=== PATIENT | male | born 1975 | race Caucasian/White ===

== ENCOUNTER 2016-05-15 23:21 | Inpatient (IN) ==
[2016-05-16 00:41] LABS: Basophils % 0.2 %; Eosinophils # 0.1 K/mcL (0.0-0.6); Eosinophils % 1.1 %; Hematocrit 42.6 % (37.5-50.1); Hemoglobin 14.9 g/dL (12.9-16.9); Immature Granulocytes % 0.3 % (0-4); Lymphocytes # 1.7 K/mcL (0.6-4.6); Lymphocytes % 17.8 %; Mean Corpuscular Hemoglobin 30.5 pg (28.0-33.3); Mean Corpuscular Volume 87.3 fL (83.0-100.0); Monocytes # 0.6 K/mcL (0.0-1.3); Platelet Count 232 K/mcL (140-400); Red Blood Count 4.88 M/mcL (4.19-5.50); Red Cell Distribution Width 12.9 % (11.5-14.5); Segmented Neutrophils % 74.6 %
--- NOTE | 2016-05-16 00:50 | Emergency Department Note ---
Disposition Clinical Impression: Unstable angina Chest pain Qualifiers: Chest pain type: unspecified Qualified Code(s): R07.9 - Chest pain, unspecified Disposition: Admitted As Inpatient Condition: Fair Time of Disposition: 02:31 Chest Pain HPI - General Chief Complaint: ED Chest Pain Stated Complaint: chest pain Time Seen by Provider: 05/16/16 00:44 Source: patient, EMS Limitations: no limitations Vital Signs Reviewed: Yes Nursing Notes Reviewed: Yes - History of Present Illness HPI Narrative: 40-year-old male history of 2 stents, CAD, hypertension, hyperlipidemia, presents with chest pain at rest. Patient states that he had 9 out of 10 crampy chest pressure radiating to his left arm making him short of breath and diaphoretic earlier this evening about 10:30 PM 3 hours prior to ED arrival. Patient came in by EMS was given an aspirin 325 mg, patient had subsequent reduction in chest pain however it still 5 out of 10. Patient is having active chest pain, 5 out of 10. He states that he also has the pain worsened tonight, and has had this for the last few months as well. Has been evaluated previously by Dr. Jose, previous stent was in 2009 Pt complaint: chest pain Onset (ago): hour(s) Duration: intermittent Onset: during rest Pain Location: substernal, left chest Severity: moderate Severity scale (1-10): 6 Quality: heaviness Pain Radiation: RUE Worsens with: nothing Treatments prior to arrival chest pain: aspirin (324mg by EMS) - Related Data Home Medications Medication Instructions Recorded Confirmed Amlodipine [Norvasc] 5 mg PO QAM 09/09/15 05/16/16 Aspirin Enteric Coated [Aspirin EC] 81 mg PO QAM 09/09/15 05/16/16 Atorvastatin Calcium [Lipitor] 80 mg PO HS 09/09/15 05/16/16 Clopidogrel [Plavix] 75 mg PO QAM 09/09/15 05/16/16 Lisinopril [Zestril] 40 mg PO QAM 09/09/15 05/16/16 Metoprolol [Lopressor] 100 mg PO BID 09/09/15 05/16/16 Nitroglycerin [Nitrostat] 0.4 mg SL AD PRN 09/09/15 05/16/16 Ranitidine HCl [Heartburn Relief] 150 mg PO BID 09/09/15 05/16/16 PriLOSEC 05/16/16 05/16/16 Allergies Allergy/AdvReac Type Severity Reaction Status Date / Time No Known Allergies Allergy Verified 09/09/15 13:51 All systems ED: reviewed and negative except as stated. Constitutional: Denies: fever, chills Eyes: Denies: eye pain, eye discharge ENT ED: Denies: ear pain, throat pain Cardiovascular: Reports: as per HPI, chest pain, dyspnea on exertion. Denies: palpitations Respiratory: Denies: cough, dyspnea Gastrointestinal: Reports: nausea. Denies: abdominal pain, vomiting Genitourinary: Denies: urgency, dysuria Musculoskeletal: Denies: back pain, neck pain Neurological: Denies: headache, weakness Chest Pain PMH - Past Medical History Medical history: Reports: coronary artery disease, CVA, hyperlipidemia, hypertension, myocardial infarction, peripheral artery disease, TIA Surgical history: Reports: cholecystectomy Psychiatric history: Reports: no psych history - Social History Smoking Status: Current every day smoker Alcohol use: Reports: none Drug use: Reports: none Physical Exam Constitutional: alert and oriented, somewhat uncomfortable, mildly hypertensive Neck: normal inspection, neck is supple, trachea midline Resp: normal chest inspection, CTA bilaterally, no resp distress CV: RRR, no m/g/r GI: normal inspection, Soft, NTND, BS present Back: normal inspection, no tenderness to palpation Neuro: A&O3, no gross motor or sensory deficits bilaterally Skin: No rashes, skin warm, dry, intact - General Limitations: no limitations General appearance: alert Course Course Narrative: 40-year-old male with a heart score of 5, given moderate to severely suspicious story risk factors and history of CAD even though he is young, he is at high risk for having acute or unstable angina. His first EKG review does show some subtle ST depressions in leads V5 and V6 repeat an EKG of the patient sells active chest pain try nitroglycerin, his initial EKG was done and the patient arrived about an hour prior to evaluation and has been placed. No ST segment elevations. - Reevaluation(s) Reevaluation #1: After reviewing to repeat EKGs, he had a mild ST elevation in lead aVR, not consistent with STEMI criteria, ST depressions in V5 and V6, that appear to be new, given EKG changes I did discuss the case with Dr. Farnsworth recommended that we start anticoagulation, consult cardiology, admitted to medicine service, for unstable angina, no evidence of an STEMI or STEMI at the time of admission, patient is stable, his chest pain improved to a 2 out of 10, will try morphine as well for chest painper Hospitalist Mynor king, if unable to get chest pain under control will start nitroglycerin drip Time: 02:29 Vital Signs Temperature 97.3 F L 05/15/16 23:22 Pulse Rate 105 05/15/16 23:22 Respiratory Rate 18 05/15/16 23:22 Blood Pressure 158/92 05/15/16 23:22 O2 Sat by Pulse Oximetry 100 05/15/16 23:22 Temperature 97.3 F L 05/15/16 23:22 Pulse Rate 89 05/16/16 04:37 Respiratory Rate 16 05/16/16 04:37 Blood Pressure 102/54 05/16/16 04:37 O2 Sat by Pulse Oximetry 97 05/16/16 04:37 Oxygen Delivery Oxygen Delivery Room Air Chest Pain - Differential Diagnosis Likely: unstable angina pectoris, atypical chest pain, st elevation myocardial infraction, costalchondritis - Medical Records Medical records reviewed: Yes I reviewed the patient's medical records. - Lab Data Result diagrams: 05/16/16 00:32 05/16/16 00:32 Lab Results 05/16/16 05/16/16 05/16/16 Range/Units 00:32 00:32 00:32 WBC 9.4 (4.3-11.1) K/mcL RBC 4.88 (4.19-5.50) M/mcL Hgb 14.9 (12.9-16.9) g/dL Hct 42.6 (37.5-50.1) % MCV 87.3 (83.0-100.0) fL MCH 30.5 (28.0-33.3) pg MCHC 35.0 (31.6-35.5) g/dL RDW 12.9 (11.5-14.5) % Plt Count 232 (140-400) K/mcL MPV 9.0 L (9.4-12.4) fL Immature Gran % 0.3 (0-4) % Seg Neutrophils % 74.6 % Lymphocytes % 17.8 % Monocytes % 6.0 % Eosinophils % 1.1 % Basophils % 0.2 % Neutrophils # 7.0 (1.6-8.9) K/mcL Lymphocytes # 1.7 (0.6-4.6) K/mcL Monocytes # 0.6 (0.0-1.3) K/mcL Eosinophils # 0.1 (0.0-0.6) K/mcL Basophils # 0.0 (0.0-0.2) K/mcL PT (9.4-12.1) Seconds INR APTT (26.0-36.0) Seconds Sodium 139 (136-145) mEq/L Potassium 3.3 L (3.5-4.5) mEq/L Chloride 104 (98-109) mEq/L Carbon Dioxide 24 (19-29) mEq/L BUN 25 (8-26) mg/dL Creatinine 1.48 H (0.72-1.25) mg/dL Est GFR ( Amer) > 60 (> 60) Est GFR (Non-Af Amer) 52 L (> 60) BUN/Creatinine Ratio 17 (6-26) Glucose 195 H (70-99) mg/dL Calculated Osmolality 298 (280-300) Calcium 9.4 (8.6-10.8) mg/dL Troponin I 0.03 (0-0.03) ng/mL 05/16/16 Range/Units 01:30 WBC (4.3-11.1) K/mcL RBC (4.19-5.50) M/mcL Hgb (12.9-16.9) g/dL Hct (37.5-50.1) % MCV (83.0-100.0) fL MCH (28.0-33.3) pg MCHC (31.6-35.5) g/dL RDW (11.5-14.5) % Plt Count (140-400) K/mcL MPV (9.4-12.4) fL Immature Gran % (0-4) % Seg Neutrophils % % Lymphocytes % % Monocytes % % Eosinophils % % Basophils % % Neutrophils # (1.6-8.9) K/mcL Lymphocytes # (0.6-4.6) K/mcL Monocytes # (0.0-1.3) K/mcL Eosinophils # (0.0-0.6) K/mcL Basophils # (0.0-0.2) K/mcL PT 11.2 (9.4-12.1) Seconds INR 1.0 APTT 29.3 (26.0-36.0) Seconds Sodium (136-145) mEq/L Potassium (3.5-4.5) mEq/L Chloride (98-109) mEq/L Carbon Dioxide (19-29) mEq/L BUN (8-26) mg/dL Creatinine (0.72-1.25) mg/dL Est GFR ( Amer) (> 60) Est GFR (Non-Af Amer) (> 60) BUN/Creatinine Ratio (6-26) Glucose (70-99) mg/dL Calculated Osmolality (280-300) Calcium (8.6-10.8) mg/dL Troponin I (0-0.03) ng/mL - Radiology Data Radiology results reviewed: Yes I reviewed the patient's radiology results. Chest X-Ray 05/16/16 00:35 IMPRESSION: Negative portable chest. D/ / Jesús Wilkinson MD / Jesús Wilkinson MD Interpreting Provider: Jesús Wilkinson MD - EKG Data EKG attestation: Yes I reviewed and interpreted this EKG. EKG shows normal: sinus rhythm Rate: normal ( ST segment depressions in V5 V6), tachycardia ST segment depression in: v5, v6 When compared to previous EKG there are: other (Repeat EKG at [address] elevation in aVR 2 mm, does not meet STEMI criteria, ST depressions in V5 V6 and lead II) Interpretation: nonspecific ST-T wave changes, other (Second repeat EKG at 0056 right-sided shows no evidence of ST segment elevations or depressions) - Core Measures AMI Core Measures Followed: Yes Heart Score - Score History: Highly Suspicious EKG: Significant ST-Depression Age: Less than 45 Risk Factors: Equal/Greater than 3 risk factor or history of atherosclerotic disease Troponin: Less than normal limit HEART Score Total: 6 Attestation Statement - Attestation Attestation: I personally interviewed and examined this patient and my medical decision- making was reviewed with the ED Resident Physician, Dr. Cabral. I agree with the documented findings, disposition and treatment plan as described except to the extent set forth below. Patient is a 40-year-old white male with a significant history of known coronary artery disease with prior stent placement who presents tonight with chest pain. Initial EKG concerning for lateral ST depression which is new compared to prior EKGs. Patient was given aspirin and nitroglycerin administration as well as morphine with relief of chest pain and remained hemodynamically stable following medication. Chest x-ray is unremarkable. Serial EKGs over time show no significant change or progression of lateral ischemia. Case was discussed with cardiology who recommended heparin IV and will consult on the patient this morning. Patient will be admitted for further evaluation and treatment remains pain-free and hemodynamically stable.
[2016-05-16] MEDS: Nitroglycerin 0.4 MG TAB.SUBL SL ONE ×3 (00:53→01:16)
[2016-05-16 00:55] LABS: BUN/Creatinine Ratio 17 (6-26); Blood Urea Nitrogen 25 mg/dL (8-26); Calcium 9.4 mg/dL (8.6-10.8); Carbon Dioxide 24 mEq/L (19-29); Chloride 104 mEq/L (98-109); Glucose 195 mg/dL (70-99); Osmolality,Calculated 298 (280-300); Potassium 3.3 mEq/L (3.5-4.5); Sodium 139 mEq/L (136-145); eGFR For African Americans > 60 (> 60); eGFR For Non-African Americans 52 (> 60)
[2016-05-16 01:45] LABS: Prothrombin Time 11.2 Seconds (9.4-12.1)
[2016-05-16 01:47] LABS: Activated Partial Thrombo Time 29.3 Seconds (26.0-36.0)
[2016-05-16] MEDS ORDERED: *HR* Enoxaparin 120 MG/0.8 ML SYRINGE SQ STA (02:04)
[2016-05-16] MEDS ORDERED: Ondansetron 4 MG/2 ML VIAL IV ONE (02:06)
[2016-05-16] MEDS ORDERED: *HR* Morphine 2 MG/ML SYRINGE IV ONE (02:06)
[2016-05-16] MEDS ORDERED: Nitroglycerin 0.4 MG TAB.SUBL SL PRN (06:44)
[2016-05-16] MEDS: Aspirin Enteric Coated 81 MG Tablet PO SCH (08:00)
[2016-05-16] MEDS ORDERED: Naloxone 0.4 MG/ML INJ IVP PRN (08:46)
[2016-05-16] MEDS ORDERED: Acetaminophen 325 MG TABLET PO PRN (08:46)
--- NOTE | 2016-05-16 08:46 | Internal Med History&Physical ---
Date of Encounter: 05/16/16 Time of Encounter: 08:00 Assessment and Plan (1) NSTEMI (non-ST elevated myocardial infarction) Current visit: Yes Status: Acute Pt with h/o CAD and prior coronary stents - with chest pain, abnormal EKG and elevated troponin. Treat with aspirin, continue clopidogrel, statin, enoxaparin. Cardiology consult for possible cardiac cath / intervention. (2) JÚNIOR (acute kidney injury) Current visit: Yes Status: Acute Monitor renal function. (3) HTN (hypertension) Current visit: Yes Status: Chronic Monitor BP. Hold antihypertensives at this time, as the pt has low normal BP. (4) Tobacco abuse Current visit: Yes Status: Chronic Counseled about smoking cessation. Offered nicotine patches (5) Hypokalemia Current visit: Yes Status: Acute Potassium replenishment. Check magnesium levels (6) Hyperglycemia Current visit: Yes Status: Acute Will check A1C (pt is at risk of DM) (7) STERLING (obstructive sleep apnea) Current visit: Yes Status: Chronic Pt apparently not using CPAP. Encouraged, to use treatement Internal Medicine - H&P: HPI Chief complaint: Chest pain Admitted From: Emergency Dept Plans for Post Hospital Care: Home History of present illness: Mr. Sifuentes is a 40 year old male with past medical history significant for coronary artery disease s/p coronary artery stents 2 in 2010, hyperlipidemia, hypertension, STERLING not on treatment, current smoker, family h/o premature CAD ( Father had [place] in his 40s) presented to the ER with h/o chest pain started at about 6 PM last night, after light work. Sharp/stabbing chest pain on the left side of his chest, 9/ 10 in severity, radiation to the left upper extremity. Pain relieved with the nitroglycerin in emergency department. He denies associated nausea, vomiting, locations, shortness of breath, sweating. Denies abdominal pain, dysuria, hematuria, bowel problems, cough, expectoration, fever , chills. He was evaluated in the emergency department and EKG was reviewed by the on-call division leader. Pt was given Aspirin, lovenox and nitroglycerine and admitted to the hospitalist service for further management. Past Med Surg Social Fam HX - Past Medical History Medical history: coronary artery disease, CVA, hyperlipidemia, hypertension, myocardial infarction, peripheral artery disease, TIA Psychiatric history: no psych history - Past Surgical History Surgical History: cholecystectomy - Social History Smoking Status: Current every day smoker Smokeless Tobacco Status: No Alcohol use: none Drug use: none - Family History Mother Hx Family Endocrine Disorder: Yes Father Living Status: Still Living Hx Family Cardiac Disorders: Yes Hx Family Respiratory Disorders: Yes Hx Family Cancer: Yes (lung) Hx Family Endocrine Disorder: Yes Internal Medicine - H&P: Meds Aspirin Enteric Coated [Aspirin EC] 81 mg PO QAM 09/09/15 [History] Atorvastatin Calcium [Lipitor] 80 mg PO HS 09/09/15 [History] Clopidogrel [Plavix] 75 mg PO QAM 09/09/15 [History] Lisinopril [Zestril] 40 mg PO QAM 09/09/15 [History] Metoprolol [Lopressor] 100 mg PO BID 09/09/15 [History] Nitroglycerin [Nitrostat] 0.4 mg SL AD PRN 09/09/15 [History] Ranitidine HCl [Heartburn Relief] 150 mg PO BID 09/09/15 [History] Febuxostat [Uloric] 40 mg PO DAILY 05/16/16 [History] Hydrochlorothiazide 25 mg PO DAILY 05/16/16 [History] NIFEdipine [Nifedipine ER] 30 mg PO DAILY 05/16/16 [History] Omeprazole [PriLOSEC] 20 mg PO DAILY 05/16/16 [History] Allergies No Known Allergies Allergy (Verified 09/09/15 13:51) All Systems PM: A 10-system review of systems was performed and is negative for pertinent findings except as documented above in the HPI. - Constitutional Vitals: Temp Pulse Resp BP Pulse Ox 97.7 F 67 16 109/68 97 05/16/16 08:00 05/16/16 08:00 05/16/16 08:00 05/16/16 08:00 05/16/16 08:00 Exam: General: Obese. Not in acute distress at the time of my evaluation HEENT: Oral mucosa is moist. No conjunctival palor or scleral icterus Neck: Short neck / fat + Lungs: Clear to auscultation Cardiac: Regular rate and rhythm. No significant murmurs Abdomen: Obese, non tender. Bowel sounds present Genitourinary: No lentz catheter Neurological: Alert and oriented. No gross localizing deficits Psych: Not aggressive or agitated Extremities: no significant leg edema Skin: No generalized rash Internal Med - H&P Results - Labs CBC & Chem 7: 05/16/16 08:58 05/16/16 08:58 Labs: Cardiac Enzymes 05/16/16 Range/Units 05:55 Troponin I 8.64 H* (0-0.03) ng/mL - EKG Data -: EKG Interpreted by Myself EKG shows normal: sinus rhythm - EKG Data EKG comments: ST depression in I, II, AVL, V4-V6 05/16/16 09:00 - Impressions ITS Impressions Chest X-Ray 05/16/16 00:35 IMPRESSION: Negative portable chest. D/ / Jesús Wilkinson MD / Jesús Wilkinson MD Interpreting Provider: Jesús Wilkinson MD
[2016-05-16] MEDS ORDERED: Potassium Chloride 40 MEQ, Lidocaine 1% 2 ML in D5% in Water 500 ML IVPB ONE (08:48)
--- NOTE | 2016-05-16 08:59 | Pre-Sedation Evaluation ---
Pre-sedation evaluation - Pre-sedation checklist Date of procedure: 05/16/16 Procedure: [facility] Recent Vitals: Last Vital Signs Temp 97.7 F 05/16/16 08:00 Pulse 67 05/16/16 08:00 Resp 16 05/16/16 08:00 BP 109/68 05/16/16 08:00 Pulse Ox 97 05/16/16 08:00 H&P (including ROS) documented in medical record: Yes Previous reaction to sedatives/anesthetics: No Dietary Status: No solid food in preceding 4 hrs and no liquid in preceding 2 hrs Airway Assessment: Patient can open mouth completely, TMJ function normal ASA Classification *see protocol: CLASS II-Mild systemic disease Plan of Care: Pt appropriate candidate for procedure/moderate/conscious sedation , Risks/benefits of procedure/sedation discussed w/ patient/family
--- NOTE | 2016-05-16 09:02 | Cardiology Consult Note ---
Date of Encounter: 05/16/16 Time of Encounter: 08:30 Assessment and Plan (1) NSTEMI (non-ST elevated myocardial infarction) Current Visit: Yes Status: Acute Per cardiology: -Know hx of CAD with 2 stents in 2009. -Inital trop 003, 8.64, and now 16.02. -Diffuse St changed on ECG new from previous. -On asa, plavix, statin, s/p Lovenox x 1 -BP 100-130s. -Currently chest pain free, however presented to ER with chest pain on exertion. States has been having chest pain with exertion for a couple of weeks. Also admits to increased shortness of breath and increased fatigue. -Will increase lovenox to 1mg/kg BID. -Will start lopressor 12.5mg BID. -Left heart cath. Risk and benefits of LHC given to patient. Patient states understanding and agreeable to proceed. Discussed with and . Will check echo -Further recommendations pending LHC. (MADDIE) (2) HTN (hypertension) Current Visit: Yes Status: Chronic Per cardiololgy: -Known history of hypertension. -At home on beta natasha, calcium channel blcoker, gerard inhibitor and HCTZ. -BPs currently 100-130s systolic, -Will start lopressor 12.5mg BID/ -Watch BP closely. -Will titrate medications as tolerated. (MADDIE) Qualifiers: Hypertension type: essential hypertension Qualified Code(s): I10 - Essential (primary) hypertension (3) JÚNIOR (acute kidney injury) Current Visit: Yes Status: Acute Per cardiology: -Creatinine on admission 1.48. -Baseline 1.1-1.2. -GFR currently 52. -Monitor closely after LHC. -Management per primary service. (MADDIE). (4) Hypokalemia Current Visit: Yes Status: Acute Per cardiololgy: -K 3.3. -K rider ordered. -Will continue to monitor. (MADDIE) (5) Tobacco abuse Current Visit: Yes Status: Chronic Per cardiology: -Known smoker. -Smokes 1 pack per day for 20 years for 20 pack year history. -States no desire to quit smoking. -Smoking cessation education given. I spent greater than 5 minutes discussing smoking cessation with patient. (MADDIE) Discussion w patient/family: The assessment and plan as outlined above was discussed with the patient who expressed understanding and agreement. All questions were answered. Thank you for involving us in the care of your patient. Please call with any questions. Patient seen and examined with FILI López Discussed and reviewed with and . History of Present Illness Consult date: 05/16/16 Requesting physician: Alfred Cabral Consult reason: unstable angina Chief complaint: chest pain History of present illness: Mr. Sifuentes is a 40 year old male with a relevant past medical history for CAD status post stenting in 2009, reported CVA x2, STERLING, hyperlipidemia, HTN, smoking , and obesity. Patient reports smoking 1 pack per day foer 20 years. Patient states he was at home and he walked his dogs outside and had chest pain that radiated down left arm. Patient states it was over his left chest and was stabbing. Patient states over the past couple of months he has been getting this pain with excertion. Patient also reports increased shortness of breath and increased fatigue lately. Patient unsure of what symptoms were when he has stents placed in 2009. Patient denies recent illness. (MADDIE) Past Med Surg Social Fam HX - Past Medical History Attestation: Yes The following information was validated with the patient. Source: patient, old records reviewed, obtained from family Medical history: coronary artery disease, CVA, hyperlipidemia, hypertension, myocardial infarction, peripheral artery disease, TIA Psychiatric history: no psych history - Past Surgical History Surgical History: cholecystectomy - Social History Smoking Status: Current every day smoker Smokeless Tobacco Status: No Alcohol use: none Drug use: none - Family History Mother Hx Family Endocrine Disorder: Yes Father Living Status: Still Living Hx Family Cardiac Disorders: Yes Hx Family Respiratory Disorders: Yes Hx Family Cancer: Yes (lung) Hx Family Endocrine Disorder: Yes Medications and Allergies Aspirin Enteric Coated [Aspirin EC] 81 mg PO QAM 09/09/15 [History] Atorvastatin Calcium [Lipitor] 80 mg PO HS 09/09/15 [History] Clopidogrel [Plavix] 75 mg PO QAM 09/09/15 [History] Lisinopril [Zestril] 40 mg PO QAM 09/09/15 [History] Metoprolol [Lopressor] 100 mg PO BID 09/09/15 [History] Nitroglycerin [Nitrostat] 0.4 mg SL AD PRN 09/09/15 [History] Ranitidine HCl [Heartburn Relief] 150 mg PO BID 09/09/15 [History] Febuxostat [Uloric] 40 mg PO DAILY 05/16/16 [History] Hydrochlorothiazide 25 mg PO DAILY 05/16/16 [History] NIFEdipine [Nifedipine ER] 30 mg PO DAILY 05/16/16 [History] Omeprazole [PriLOSEC] 20 mg PO DAILY 05/16/16 [History] Allergies No Known Allergies Allergy (Verified 09/09/15 13:51) All Systems Review: A 10-system review of systems was performed and is negative for pertinent findings except as documented above in the HPI. - Constitutional Constitutional: fatigue - Cardiovascular Cardiovascular: as per HPI, chest pain with exertion, dyspnea on exertion, radiating jaw, neck or arm pain Physical Examination Vital Signs, Last 4 Hours Temp Pulse Resp BP Pulse Ox 05/16/16 08:00 97.7 F 67 16 109/68 97 05/16/16 07:55 97.7 F 67 16 109/68 97 General: Conversant, No Apparent Distress HEENT: Atraumatic, Normocephaly, Mucus Membranes Moist Neck: No JVD, Normal carotid pulses Cardiac: Reg Rate and Rhythm, Normal S1 and S2, No Murmur Lungs: Normal Breath Sounds, No Wheeze, Rales, Rhonchi Neuro: Alert and responsive, No focal deficits noted Abdomen: Soft, Non-Tender Skin: No rashes noted on visualized skin Musculoskeletal: No Chest Wall Tenderness Extremities: No Clubbing, No Cyanosis, No Edema, Normal Pulses Results 05/16/16 08:58 05/16/16 08:58 Lab Results Impressions Chest X-Ray 05/16/16 00:35 IMPRESSION: Negative portable chest. D/ / Jesús Wilkinson MD / Jesús Wilkinson MD Interpreting Provider: Jesús Wilkinson MD Active Medications Acetaminophen (Tylenol) 650 mg PO Q6HR PRN PRN Reason: Mild Pain (1-3) Stop: 11/15/16 08:47 Aspirin (Aspirin Ec) 81 mg PO [facility] Stop: 11/15/16 09:01 Last Admin: 05/16/16 08:00 Dose: 81 mg Atorvastatin Calcium (Lipitor) 80 mg PO HS [facility] Stop: 11/15/16 21:01 Clopidogrel Bisulfate (Plavix) 75 mg PO QAM [facility] Stop: 11/15/16 09:01 Last Admin: 05/16/16 08:00 Dose: 75 mg Enoxaparin Sodium (Lovenox *Pharmacy Wt Based*) 120 mg 1 mg/kg (120 mg) SQ Q12HR GIULIANA PRN Reason: Protocol Stop: 11/15/16 11:01 Potassium Chloride 40 meq/ (Lidocaine 2 ml/ Dextrose) 522 mls @ 130.5 mls/hr IVPB ONCE ONE Stop: 05/16/16 12:47 Metoprolol Tartrate (Lopressor) 12.5 mg PO BID [facility] Stop: 11/15/16 09:01 Naloxone HCl (Narcan) 0.4 mg IVP Q2MIN PRN PRN Reason: Opioid Reversal Stop: 11/15/16 08:47 Nitroglycerin (Nitroglycerin) 0.4 mg SL AD PRN PRN Reason: Chest Pain Stop: 11/15/16 06:45 Laboratory Tests 09/10/15 05/16/16 05/16/16 05:16 00:32 00:32 Hgb Potassium 3.3 L Creatinine 1.16 1.48 H Est GFR (Non-Af Amer) 52 L Troponin I 0.03 05/16/16 05/16/16 05:55 08:58 Hgb 13.1 D Potassium Creatinine Est GFR (Non-Af Amer) Troponin I 8.64 H* - Imaging and Cardiology Chest Xray: report reviewed Echo: report reviewed Cardiac cath: pending - EKG Interpretation EKG results cardiology: personally reviewed (ECG with sinus rhythm, HR 99. ST depression in leads II,avl, avf, V3, V4, V5, V6. and ST elevation in avr.), other (Telemetry reviewed with average HR 68, sinus rhythm. Occasional PVCs noted.) Consult Discharge Plan - Plan Referrals: Jose Alfredo Waggoner DO [Primary Care Provider] -
[2016-05-16 09:07] LABS: Hematocrit 38.1 % (37.5-50.1); Hemoglobin 13.1 g/dL (12.9-16.9); Mean Corpuscular HGB Conc 34.4 g/dL (31.6-35.5); Mean Corpuscular Volume 87.2 fL (83.0-100.0); Mean Platelet Volume 8.8 fL (9.4-12.4); Platelet Count 213 K/mcL (140-400); Red Blood Count 4.37 M/mcL (4.19-5.50); Red Cell Distribution Width 12.8 % (11.5-14.5)
[2016-05-16 09:23] LABS: Alanine Aminotransferase 36 Units/L (0-55); Albumin 3.4 g/dL (3.5-5.0); Albumin/Globulin Ratio 1.1 (1.1-2.2); Alkaline Phosphatase 48 Units/L (38-126); Aspartate Amino Transferase 68 Units/L (5-34); BUN/Creatinine Ratio 21 (6-26); Bilirubin,Total 0.4 mg/dL (0.2-1.2); Blood Urea Nitrogen 25 mg/dL (8-26); Carbon Dioxide 24 mEq/L (19-29); Chloride 107 mEq/L (98-109); Globulin 3.1 g/dL (2.4-3.5); Glucose 82 mg/dL (70-99); Osmolality,Calculated 295 (280-300); Potassium 3.9 mEq/L (3.5-4.5); Sodium 141 mEq/L (136-145); Total Protein 6.5 g/dL (6.0-8.3); eGFR For African Americans > 60 (> 60); eGFR For Non-African Americans > 60 (> 60)
[2016-05-16] MEDS ORDERED: Verapamil 5 MG/2 ML VIAL ONE (11:45)
[2016-05-16] MEDS ORDERED: Heparin 1,000 UNITS/500 mL NS 500 ML ONE (11:46)
[2016-05-16] MEDS ORDERED: 0.9 % Sodium Chloride 1,000 ML ONE ×2 (11:46→12:04)
[2016-05-16] MEDS ORDERED: *HR* Heparin 10,000 UNIT/10 ML VIAL ONE (11:46)
[2016-05-16] MEDS ORDERED: Nitroglycerin 1,000 MCG/10 ML VIAL IV ONE (11:46)
[2016-05-16] MEDS ORDERED: *HR* Midazolam HCl 5 MG/5 ML VIAL IVP ONE (12:03)
[2016-05-16] MEDS ORDERED: *HR* FentaNYL (PF) 100 MCG/2 ML VIAL ONE (12:03)
--- NOTE | 2016-05-16 12:03 | Electrocardiograph Report ---
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
--- NOTE | 2016-05-16 12:04 | Electrocardiograph Report ---
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
--- NOTE | 2016-05-16 12:04 | Electrocardiograph Report ---
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
[2016-05-16] MEDS ORDERED: Tirofiban 5 MG/100ML 5 MG/100 ML BAG IV ONE (12:42)
[2016-05-16] MEDS ORDERED: *HR* Ticagrelor 90 MG TABLET ONE (13:09)
--- NOTE | 2016-05-16 13:15 | Invasive Diagnostic Lab Proc ---
Name: Ifeanyi Sifuentes Date of Study: 05/16/2016 Date: 1975 Ht: 72.8in Medical Record#: [id number] Age: 40 Wt: 260.15lb Gender: Male BSA: 2.4 Order #: [id number] BMI: 34.48 Physicians Procedure Physician: Khoa Jose MD, [facility] Referring MD: Jose Alfredo Waggoner DO Referring MD: Staff Name Position Time In Sites, Alda RT (R) Scrub 11:57 AM Gisele Chinchilla RN 3Rd Mate 11:57 AM Minoo Huynh RN Monitor 11:57 AM Indications Indication Non-Stemi Procedures Performed Procedure L HRT ARTERY/VENTRICLE ANGIO PRQ CARD SAYRA STENT W/ANGIO 1 VSL PRQ CARD SAYRA STENT W/ANGIO 1 VSL Pre-Procedure Checklist Informed consent is complete signed and on chart. H\\T\\P is on chart. ID band is on and ID verified with patient. Patient NPO for procedure The procedure was described for the patient and questions were answered. ECG is on chart. Plan of Care Patient will tolerate the procedure without complications. Adequate level of comfort will be maintained. Hemodynamics will remain stable Patient will recover from procedure without complications. Respiratory function will be maintained. Cardiac rhythm will remain stable. Patient temperature will be maintained. Patient and/or family have verbalized understanding of the procedure. Patient Education Chief Complaint/Reason for Test: Cardiac Cath Developmental Category: Adult (18-64 years) Developmentally Appropriate for Age: Yes Learning Barriers: None Education Needs: Plan of Care Education Method: Verbal Information Taught: Cardiac Cath Educational Evaluation: Able to repeat information Intravenous Access Time IV Size Location DC'd Fluid/Drip Rate Units RN 11:52 AM 18g 1 /" Patent On Arrival Lt Antecubital 0.9NaCl 25 ml/hr Allergies NKDA Vital Signs Time BP (mmHg) HR (bpm) O2 Sat. RR (bpm) LOC 12:09 PM / % 5 = Fully awake and oriented or at pre-proc level 12:09 PM / % 5 = Fully awake and oriented or at pre-proc level 12:15 PM / % 5 = Fully awake and oriented or at pre-proc level 12:28 PM / % 5 = Fully awake and oriented or at pre-proc level 12:32 PM / % 5 = Fully awake and oriented or at pre-proc level 12:47 PM / % 5 = Fully awake and oriented or at pre-proc level 12:08 PM 134 / 86 84 100 % 13 12:13 PM 135 / 79 72 98 % 11 12:18 PM 119 / 64 81 95 % 8 12:23 PM 120 / 68 73 94 % 12:28 PM 145 / 79 67 99 % 21 12:32 PM 119 / 73 71 98 % 16 12:33 PM 135 / 66 73 98 % 18 12:38 PM 132 / 67 65 99 % 9 12:43 PM 128 / 73 69 99 % 23 12:48 PM 136 / 82 72 100 % 14 12:53 PM 146 / 79 67 100 % 20 12:58 PM 137 / 76 71 100 % 20 Procedural Medications Time Medication Dose Units Method Given By 12:06 PM Oxygen 2 L/min nasal cannula Gisele Chinchilla RN 12:06 PM Versed 3 mg Intravenous Gisele Chinchilla RN 12:06 PM Fentanyl 50 mcg Intravenous Gisele Chinchilla RN 12:13 PM Versed 2 mg Intravenous Minoo Huynh RN 12:13 PM Fentanyl 25 mcg Intravenous Minoo Huynh RN 12:13 PM Lidocaine 1% 0.5 ml Subcutaneous Khoa Jose MD, FACC 12:14 PM Heparin 4000 units 12:14 PM Nitroglycerin 200 mcg 12:14 PM Verapamil 2.5 mg Intraarterial Khoa Jose MD, FACC 12:21 PM Oxygen 4 L/min nasal cannula Gisele Chinchilla RN 12:29 PM Heparin 3000 units Intravenous Gisele Chinchilla RN 12:31 PM Nitroglycerin 100 mcg Intracoronary Khoa Jose MD 12:44 PM Aggrastat Bolus: 58 ml Intravenous Gisele Chinchilla RN 12:45 PM Aggrastat 5mg/100ml 21 ml Intravenous Gisele Chinchilla RN 01:00 PM Brilinta 180 mg Orally Gisele Chinchilla RN ASA Classification: CLASS II- Mild systemic disease (i.e. well-controlled diabetes, hypertension, asthma, cigarette smoking) Shelton Score Preprocedure Postprocedure Activity 2- Moves 4 extremities sustained head lift Activity 2- Moves 4 extremities sustained head lift Circulation 2- SBP +/= 20 points of pre-anesthetic level Circulation 2- SBP +/= 20 points of pre-anesthetic level Consciousness 2- Awake and alert oriented x 3 Consciousness 2- Awake and alert oriented x 3 O2 Saturation 2- Able to maintain O2 satruation of 92% on room air O2 Saturation 2- Able to maintain O2 satruation of 92% on room air Respiratory 2- Able to deep breathe and cough well Respiratory 2- Able to deep breathe and cough well Total Score 10 Total Score 10 Contrast Agent: Isovue Diagnostic Contrast: 186 ml Total Contrast: 186 ml Fluoro Dose: 1203 mGy Activated Clotting Time Time Seconds to Clot 12:29 PM 209 Procedure Log Time Note Enter By 11:57 AM Pt arrived to labor arbitrator 2 at 11:57 ejohnson 11:57 AM Alda Logan RT (R) Position: Scrub Time in: 11:57 ejohnson 11:57 AM Gisele Chinchilla RN Position: 3Rd Mate Time in: :57 ejohnson 11:57 AM Minoo Huynh RN Position: Monitor Time in: 11:57 ejohnson 11:57 AM Patient charges- Angio tray pack, Navilyst 3mm J, Pulse Oximetry and ACIST tubing and transducer ejohnson 11:58 AM Case Delayed No ejohnson 11:58 AM Hair removed from procedure site in procedure lab using clippers. Right wrist prepped with Chloraprep by Alda Logan RT (R), safety strap applied then patient was draped. Skin intact. ejohnson 11:58 AM Physician arrived 11:58 ejohnson 11:58 AM ASA Class CLASS II- Mild systemic disease (i.e. well-controlled diabetes, hypertension, asthma, cigarette smoking) ejohnson 11:58 AM Meet and greet completed ejohnson 11:58 AM Sign in performed according to hospital policy. ejohnson 11:58 AM Procedure start 11:58 ejohnson 12:00 PM Hair removed from procedure site in procedure lab using clippers. Right groin prepped with Chloraprep by Desmond, Alda RT (R), safety strap applied then patient was draped. Skin intact. ejohnson 12:02 PM Vitals capture started with the following parameters, Patient=Adult, Interval=5 min, Initial Mhljgomh=897 mmHg, Deflation Rate=5 mmHg, Cuff placed on Left Arm 12:06 PM Time: 12:06 Oxygen on at 2 L/min per nasal cannula by Gisele Chinchilla RN ejohnson 12:06 PM Time: 12:06 Versed 3 mg Intravenous Given by Gisele Chinchilla RN ejohnsluis felipe 12:06 PM Time: 12:06 Fentanyl 50 mcg Intravenous Given by Gisele Chinchilla RN ejohnsluis felipe 12:07 PM Vitals capture started with the following parameters, Patient=Adult, Interval=5 min, Initial Purhdrdm=736 mmHg, Deflation Rate=5 mmHg, Cuff placed on Left Arm 12:08 PM HR=84 bpm, IESK=028/86 mmhg, NuY3=595 %, Resp=13 B/min 12:09 PM Time: 12:09 Patient comfortable and pain free: Yes ejohnson 12:09 PM Time: 12:09LOC: 5 = Fully awake and oriented or at pre-proc level ejohnson 12:12 PM Time out performed according to hospital policy ejohnson 12:12 PM Recorded ECG: HR=76 Condition=Condition 1 12:12 PM Pressure channel 1 zeroed. 12:13 PM HR=72 bpm, VZKM=742/79 mmhg, SpO2=98 %, Resp=11 B/min 12:13 PM Time: 12:13 Versed 2 mg Intravenous Given by Minoo Huynh RN ejmansluis felipe 12:13 PM Time: 12:13 Fentanyl 25 mcg Intravenous Given by Minoo Huynh RN ejohnson 12:13 PM Time: 12:13 0.5 ml Lidocaine 1% to right radial Subcutaneous Given by Khoa Jose MD, [facility] ejmanson 12:14 PM Access obtained by percutaneous puncture. 6Fr 10cm Terumo Glidesheath sheath placed in right Radial artery. [id number] ejmanson 12:14 PM Time: 12:14 Patient given 4,000 units Heparin, 200 mcg Nitroglycerin, and 2.5 mg Verapamil Intraarterial by Khoa Jose MD, [facility] ejmanson 12:15 PM Time: 12:09 Patient comfortable and pain free: Yes ejohnson 12:15 PM Time: 12:09LOC: 5 = Fully awake and oriented or at pre-proc level ejohnson 12:15 PM 5Fr JR4 catheter inserted over the wire [facility] ejmanson 12:16 PM 0.035 145cm VSI Jose-Torque wire [id number] ejmanson 12:17 PM Recorded Pressure: Ao, HR=82, Condition=Condition 1 (Aorta) Ao 91/77/85 12:17 PM RCA angiography performed in multiple views. ejohnson 12:18 PM HR=81 bpm, FPQZ=356/64 mmhg, SpO2=95.0 %, Resp=8 B/min, Comment=SR 12:18 PM Catheter removed ejohnson 12:19 PM 5Fr FL 4 catheter inserted over the wire DN ejohnson 12:19 PM LCA angiography performed in multiple views. ejohnson 12:19 PM Recorded Pressure: Ao, HR=76, Condition=Condition 1 (Aorta) Ao 96/78/89 12:20 PM Coronary Dominance: right ejohnson 12:20 PM Lesion found in Proximal RCA. Pre Stenosis: 100 Pre CESAR Flow: 0: No Flow/No perfusion ejohnson 12:20 PM Right Coronary, Right Posterior Descending Arteries with Right Posterolateral and Acute Marginal branches with 100 % stenosis. ejohnson 12:21 PM Time: 12:21 Oxygen on at 4 L/min per nasal cannula by Gisele Chinchilla RN ejohnson 12:23 PM HR=73 bpm, VOGI=685/68 mmhg, SpO2=94.0 %, Comment=SR 12:24 PM Catheter removed ejohnson 12:25 PM Inflation device was opened. ejohnson 12:25 PM 6Fr CLS 3.5 Runway guide catheter was used to cannulate the PCI vessel successfully. reused? No ejohnson 12:26 PM Lesion found in Proximal Circumflex. Pre Stenosis: 80 Pre CESAR Flow: 3: Complete and Brisk Flow/Perfusion ejohnson 12:26 PM Circumflex, Obtuse Marginal, Left Posterior Descending, and Left Posterolateral Coronary Arteries with 80 % stenosis. ejohnson 12:27 PM .014 PT Graphix 182cm guide wire across target lesion- successful. reused? No ejohnson 12:28 PM HR=67 bpm, IMWJ=435/79 mmhg, SpO2=99.0 %, Resp=21 B/min, Comment=SR 12:28 PM Time: 12:15 Patient comfortable and pain free: Yes ejohnson 12:28 PM Time: 12:15LOC: 5 = Fully awake and oriented or at pre-proc level ejohnson 12:29 PM At 12:29 the ACT was 209 seconds. ejohnson 12:30 PM Time: 12:29 Heparin 3000 units Intravenous Given by Gisele Chinchilla RN ejohnson 12:30 PM 2.5 mm x 12 mm Emerge Monorail balloon across target lesion- successful. reused? No ejohnson 12:31 PM Pressure channel 1 zeroed. 12:31 PM NIBP STAT measurement started. 12:31 PM Time: 12:31 Nitroglycerin 100 mcg Intracoronary Given by Khoa Jose MD ejohnson 12:32 PM HR=71 bpm, UNXW=437/73 mmhg, SpO2=98.0 %, Resp=16 B/min, Comment=SR 12:32 PM Time: 12:28 Patient comfortable and pain free: Yes ejohnson 12:32 PM Time: 12:28LOC: 5 = Fully awake and oriented or at pre-proc level ejohnson 12:33 PM Balloon inflated @ 14 mitch for 9 seconds ejohnson 12:33 PM HR=73 bpm, OQSB=601/66 mmhg, SpO2=98.0 %, Resp=18 B/min, Comment=SR 12:33 PM Balloon inflated @ 14 mitch for 7 seconds ejohnson 12:34 PM Balloon catheter removed intact. ejohnson 12:35 PM 3.0mm x 16mm Synergy drug-eluting stent across target lesion- successful Lot #[id number] ejohnson 12:36 PM Stent deployed @ 16 mitch for 16 seconds ejohnson 12:38 PM HR=65 bpm, TUOW=452/67 mmhg, SpO2=99.0 %, Resp=9 B/min, Comment=SR 12:38 PM Stent delivery system removed intact. ejohnson 12:38 PM 3.25 mm x 8mm NC Trek Rx balloon across target lesion- successful. reused? No ejohnson 12:39 PM Lesion found in midl LAD. Pre Stenosis: 80 Pre CESAR Flow: 3: Complete and Brisk Flow/Perfusion ejohnson 12:40 PM Balloon inflated @ 12 mitch for 13 seconds ejohnson 12:40 PM Balloon inflated @ 12 mitch for 7 seconds ejohnson 12:41 PM Balloon catheter removed intact. ejohnson 12:42 PM guidewire repositioned into the LAD ejohnson 12:43 PM HR=69 bpm, QIQB=741/73 mmhg, SpO2=99.0 %, Resp=23 B/min, Comment=SR 12:43 PM 2.5 mm x 12 mm Emerge Monorail balloon across target lesion- successful. reused? Yes ejohnson 12:44 PM Balloon inflated @ 12 mitch for 9 seconds ejohnson 12:45 PM Time: 12:44 Aggrastat Bolus: 58 ml Intravenous Given by Gisele Chinchilla RN Barth pump ejohnson 12:45 PM Balloon inflated @ 8 mitch for 4 seconds ejohnson 12:45 PM Time: 12:45 Aggrastat 5mg/100ml 21 ml Intravenous Given by Gisele Chinchilla RN Barth pump ejohnson 12:46 PM Balloon catheter removed intact. ejohnson 12:47 PM 2.75mm x 16mm Synergy drug-eluting stent across target lesion- successful Lot #[id number] ejohnson 12:47 PM Time: 12:32 Patient comfortable and pain free: Yes ejohnson 12:47 PM Time: 12:32LOC: 5 = Fully awake and oriented or at pre-proc level ejohnson 12:48 PM HR=72 bpm, XJIR=589/82 mmhg, VrQ7=484.0 %, Resp=14 B/min, Comment=SR 12:48 PM Stent deployed @ 14 mitch for 22 seconds ejohnson 12:53 PM Mid/Distal Left Anterior Descending Coronary Artery and diagonal branches with 80% stenosis. If graft is supplying this area, 0 % stenosis ejohnson 12:53 PM HR=67 bpm, MONQ=555/79 mmhg, VnV9=292.0 %, Resp=20 B/min, Comment=SR 12:53 PM 2.75 mm x 12mm NC Emerge balloon across target lesion- successful. reused? No ejohnson 12:54 PM Balloon inflated @ 20 mitch for 16 seconds ejohnson 12:54 PM Balloon inflated @ 20 mitch for 10 seconds ejohnson 12:55 PM Balloon catheter removed intact. ejohnson 12:55 PM Guide wire removed intact. ejohnson 12:55 PM Time: 12:47 Patient comfortable and pain free: Yes ejohnson 12:55 PM Time: 12:47LOC: 5 = Fully awake and oriented or at pre-proc level ejohnson 12:55 PM Guide catheter removed intact. ejohnson 12:55 PM 5Fr Pigtail catheter inserted over the wire [facility] ejohnson 12:56 PM Catheter selectively placed in left ventricle ejohnson 12:56 PM Bolus angiogram of left Ventricle complete: 10 ml/sec for a total of 30 mls ejohnson 12:57 PM Recorded Pressure: LV, HR=64, Condition=Condition 1 (Left Ventricle) LV 132/7/19 12:57 PM Recorded Pressure: LV, Ao, HR=69, Condition=Condition 1 (Left Ventricle) LV 129/50/88, (Aorta) Ao 108/72/92 12:58 PM HR=71 bpm, AUVR=364/76 mmhg, NrB9=413.0 %, Resp=20 B/min, Comment=SR 12:59 PM Procedure completed at 12:59 ejohnson 01:00 PM Sign out completed: Radiation Dose 1202.61 mGy Fluoro Time: 11.1 Isovue 370 - 200ml contrast 185.8 ml given by Khoa Jose MD, [facility]. Complications: NoneCardiac Rehab Consult needed: YesConfirmed administered medications: Yes ejohnson 01:00 PM Isovue 370 - 200ml,1 Bottle(s) used. ejohnson 01:00 PM Time: 13:00 Brilinta 180 mg Orally Given by Gisele Chinchilla RN ejohnson 01:00 PM Arterial sheath pulled, Vasc Band closure device used and was Successful S/N. ejohnson 01:00 PM Post ECG NSR ejohnson 01:01 PM Post Blood Pressure 137/76 ejohnson 01:01 PM 13:01 Post Pulses Rt Radial 1+ ejohnson 01:01 PM Information taught ejohnson 01:01 PM Information taught PCI and Vasc Band ejohnson 01:01 PM Education needs Plan of Care and Responsibilities of Patient in Care ejohnson 01:01 PM Learning barriers :None ejohnson 01:01 PM Education evaluation Able to repeat information ejohnson 01:01 PM Site status No bleeding/hematoma - Rt Wrist as reported by Sites, Alda RT (R) at 13:01 ejohnson 01:01 PM Plavix, Effient or Brilinta given Yes ejohnson 01:02 PM Family placed in consult room. ejohnson 01:02 PM Complications: None ejohnson 01:09 PM Report given to Jeannette ROBERTSON Pt taken to 3B Room #44. 13:08 ejohnson 01:09 PM Plavix, Effient or Brilinta given Yes ejohnson 01:09 PM Delay to floor No ejohnson 01:09 PM Patient out of room: 13:09 ejohnson 01:09 PM Family placed in none at this time. ejohnson Complications Complication None Hemodynamics Pressures Site Systolic/A Wave Diastolic/V Wave Mean AO 91 77 85 AO 96 78 89 LV 132 7 19 LV 129 50 88 AO 108 72 92 Post Procedure Information Blood Pressure: 137/76 mmHg Rhythm: NSR Post procedural instructions were given Closure Device Time Device Success/Fail 05/16/2016 1:00:00 PM Mechanical Compression Successful Site Checks Time Location Status Staff Sheath In? Note 01:01 PM Rt Wrist No bleeding/hematoma Sites, Alda RT (R) Pulses Time Site Pre-Procedure Post-Procedure Note 05/16/2016 11:53:00 AM Bilateral DP \\T\\ PT 2+ 05/16/2016 11:54:00 AM Bilateral radial 2+ 1:01:00 PM Rt Radial 1+ Updated by Minoo Huynh RN on 05/16/2016 1:10:41 PM Minoo Huynh RN electronically signed on 05/16/2016 1:11:06 PM with status of Final
[2016-05-16] MEDS: *HR* Enoxaparin 120 MG/0.8 ML SYRINGE SQ SCH ×2 (14:40→18:28)
[2016-05-17] MEDS: *HR* Enoxaparin 120 MG/0.8 ML SYRINGE SQ SCH (05:02)
[2016-05-17] MEDS: Aspirin Enteric Coated 81 MG Tablet PO SCH (07:52)
--- NOTE | 2016-05-17 08:34 | Cardiology Progress Note ---
Date of Encounter: 05/17/16 Time of Encounter: 08:30 Assessment and Plan (1) NSTEMI (non-ST elevated myocardial infarction) Current Visit: Yes Status: Acute Peak troponin=16.02 with ischemic ECG changes. TTE: pending--can follow-up as outpatient. [facility] 05/16/16: s/p successful PTCA/SAYRA to pLCx and mLAD; 100% pRCA stenosis with collaterals that feed left to right, EF 65% Cardiac rehab consulted. He has been up and ambulating in hallways without symptoms or recurrent chest pain. Right radial cath site stable--dressing removed, +2 pulses, no hematoma, oozing , or pain at site. Post PCI discharge instructions including care of site, activity restrictions, and uninterrupted DAPT (asa + plavix) therapy emphasized. Encouraged importance of smoking cessation. Continue asa, statin, plavix, and betablocker. Will resume home ACEi. All questions and concerns were addressed; he verbalized understanding of all information provided. Follow-up with [facility] in 5-7 days, appointment to be coordinated with office. Cardiology will sign-off, please call with questions. (2) HTN (hypertension) Current Visit: Yes Status: Chronic Currently controlled. Will resume home ACEi at reduced dose, 20 mg daily. Uptitrate in the outpatient setting if BP will tolerate. Qualifiers: Hypertension type: essential hypertension Qualified Code(s): I10 - Essential (primary) hypertension (3) Tobacco abuse Current Visit: Yes Status: Chronic Smoking cessation counseling provided; he is agreeable to nicotine patches. Recommend Rx for nicotine patches upon discharge. (4) JÚNIOR (acute kidney injury) Current Visit: Yes Status: Resolved Resolved. Discussion w patient/family: The assessment and plan as outlined above was discussed with the patient and/or family members who expressed understanding and agreement. All questions were answered. Thank you for involving us in the care of your patient. Please call with any questions. The patient was discussed and reviewed with Dr. Parker; Cardiology will sign- off. Subjective Principal diagnosis: NSTEMI Interval history: Seen and examined. s/p PCI. He has no complaints this morning; states has been up walking in hallways without chest pain or discomfort. No other symptoms reported. No issues with right radial cath site. Objective Vital Signs, Last 4 Hours Temp Pulse Resp BP Pulse Ox 04/06/17 06:57 98.2 F 73 16 148/82 94 General: Conversant, No Apparent Distress HEENT: Atraumatic, Normocephaly, Mucus Membranes Moist Cardiac: Reg Rate and Rhythm, Normal S1 and S2 Lungs: Normal Breath Sounds Neuro: Alert and responsive Abdomen: Soft Skin: No rashes noted on visualized skin Musculoskeletal: No Chest Wall Tenderness Extremities: No Edema, Normal Pulses Other: Right radial: +2 pulses, no hematoma, or ecchymosis noted. Results 05/16/16 08:58 05/16/16 08:58 Lab Results 05/16/16 05/16/16 05/16/16 08:58 08:58 08:58 WBC 8.6 Hgb 13.1 D Hct 38.1 Plt Count 213 Sodium 141 Potassium 3.9 Chloride 107 Carbon Dioxide 24 BUN 25 Creatinine 1.17 Glucose 82 Calcium 9.0 Magnesium 2.0 Total Bilirubin 0.4 AST 68 H ALT 36 Alkaline Phosphatase 48 Troponin I 16.02 H* Active Medications Acetaminophen (Tylenol) 650 mg PO Q6HR PRN PRN Reason: Mild Pain (1-3) Stop: 11/15/16 08:47 Last Admin: 05/16/16 19:27 Dose: 650 mg Aspirin (Aspirin Ec) 81 mg PO [facility] Stop: 11/15/16 09:01 Last Admin: 05/17/16 07:52 Dose: 81 mg Atorvastatin Calcium (Lipitor) 80 mg PO [facility] Stop: 11/15/16 21:01 Last Admin: 05/16/16 20:06 Dose: 80 mg Clopidogrel Bisulfate (Plavix) 75 mg PO [facility] Stop: 11/15/16 09:01 Last Admin: 05/17/16 07:52 Dose: 75 mg Enoxaparin Sodium (Lovenox) 120 mg 1 mg/kg (120 mg) SQ Q12HR [facility] PRN Reason: Protocol Stop: 11/15/16 11:01 Last Admin: 05/17/16 05:02 Dose: 120 mg Metoprolol Tartrate (Lopressor) 12.5 mg PO BID [facility] Stop: 11/15/16 09:01 Last Admin: 05/17/16 07:53 Dose: 12.5 mg Naloxone HCl (Narcan) 0.4 mg IVP Q2MIN PRN PRN Reason: Opioid Reversal Stop: 11/15/16 08:47 Nitroglycerin (Nitroglycerin) 0.4 mg SL AD PRN PRN Reason: Chest Pain Stop: 11/15/16 06:45 - Imaging and Cardiology Echo: pending Cardiac cath: report reviewed Other Results: 12 hour tele: avg HR=76 SR. - EKG Interpretation EKG results cardiology: personally reviewed Consult Discharge Plan - Plan Instructions: Angina (GEN), Right Heart Catheterization (DC), Heart Healthy Diet (DC) Referrals: Jose Alfredo Waggoner DO [Primary Care Provider] -
--- NOTE | 2016-05-17 08:59 | Invasive Diagnostic Lab ---
Name: Ifeanyi Sifuentes Date of Study: 05/16/2016 Date: 1975 Ht: 185.0 cm /72.8 in Medical Record#: [id number] Age: 40 Wt: 118. kg / 260.15 lb Account/Order#: [id number] Gender: Male BSA: 2.4 Order #: [id number] Fluoro Dose: 1203 mGy BMI: 34.48 Procedure Physician: Khoa Jose MD, [facility] Referring MD: Jose Alfredo Waggoner DO Referring MD: Procedures Performed: LEFT HEART CATH Stent w/ PTCA Single Major Vessel Stent w/ PTCA Single Major Vessel Indications: Non-Stemi Impressions: There is severe three vessel coronary artery disease. The left ventricle is normal and has normal contractility EF 65% Patient had successful PTCA/Drug-Eluting Stent placement in the mid Circ. Patient had successful PTCA/Drug-Eluting Stent placement in the mid LAD. Recommendations: Optimal medical therapy of patient's disease. Aggressive risk factor modification. History/Risk Factors: TIA Hypertension Dyslipidemia Family History of CAD Peripheral Vascular Disease Procedure Access obtained in the right Radial artery by percutaneous puncture Patient had successful PTCA/Drug-Eluting Stent placement in the mid LAD. Patient had successful PTCA/Drug-Eluting Stent placement in the p Circ. Complications: None Contrast: Isovue 186ml Hemodynamics: Pressures Site Systolic/ A Wave Diastolic/ V Wave End Diastolic/ Mean HR AO 91 77 85 82 AO 96 78 89 76 LV 132 7 19 64 LV 129 50 88 69 AO 108 72 92 72 LV Ventriculography Ejection Method: LV Gram Ejection Fraction: 65% Wall Motion: DUNBAR Anterobasal Normal Anterolateral Normal Apical: Normal Inferoapical Normal Inferobasal Normal Coronary Dominance: right Lesion Findings/Interventions * Left Main Coronary Artery The LMCA is angiographically free of disease. * Left Anterior Descending The Proximal LAD has patent stents present from a previous procedure. There is a 16 mm long, 70-80% stenosis in the Mid LAD. The lesion has a CESAR flow of 3 and has no thrombus present. An intervention was performed on the Mid LAD with a final stenosis of 0%. There were no lesion complications. The final CESAR flow was 3. * Circumflex There is a 16 mm long, 70-80% stenosis in the mid Circumflex. The lesion has a CESAR flow of 3 and has no thrombus present. An intervention was performed on the Proximal Circumflex with a final stenosis of 0%. There were no lesion complications. The final CESAR flow was 3. * Right Coronary Artery There is a 100% stenosis in the Proximal RCA. The lesion has a CESAR flow of 0, has no thrombus present, and has collaterals which feed from left to right. PDA fills from left to right. Interventional Device(s) Vessel Segment Type Name Diameter (mm) Length (mm) Proximal Circumflex drug-eluting stent Synergy 3 16 Proximal Circumflex balloon NC Trek Rx 3.25 8 Proximal Circumflex balloon Emerge Monorail 2.5 12 Mid LAD balloon Emerge Monorail 2.5 12 Mid LAD balloon NC Emerge 2.75 12 Mid LAD drug-eluting stent Synergy 2.75 16 Updated by Minoo Huynh RN on 05/16/2016 1:07:42 PM Khoa Jose MD, FAC electronically signed on 05/17/2016 8:52:39 AM with status of Final
[2016-05-17] MEDS ORDERED: Lisinopril 20 MG TABLET PO SCH (09:00)
--- NOTE | 2016-05-17 09:05 | ECHO - Doppler Report ---
Limited Echocardiogram Name: Ifeanyi Sifuentes Date of Study: 05/16/2016 Date: 1975 Ht: 73.0 in Medical Record#: [id number] Age: 40 Wt: 261.0 lb Gender: Male BSA: 2.41 Order #: [id number] Location: [facility] Room #: 3B44 Reading Physician: Cherise Hsu DO Corrosion Control Specialist: Arleen Lebron RDCS Ordering Physician: Pop Islas CNP Primary Physician: Jose Alfredo Waggoner DO Indications: NSTEMI Impressions: LVEF 60-65%. Normal left ventricular size and systolic function. Normal right ventricular size and function. Left Ventricular Wall Motion: Rest Echo Findings All wall segments showed normal motion. Findings: Study Quality * Technically adequate exam. ECG Findings * Sinus rhythm and sinus bradycardia. Left Ventricle * LVEF 60-65%. * Normal LV chamber size, wall thickness and function. Right Ventricle * Normal right ventricular structure and function. History Hypertension Hypercholesteremia History of Smoking Years 20 Packs 1 Family History of CAD History of CAD/PTCA Myocardial Infarction 09/10/2015 a Previous Echo was performed. Measurements: BP: 128/ 78 2D Normal Values IVSd: .98 cm 0.6 - 1.0 cm LVIDd: 4.90 cm 3.7 - 5.6 cm LVPWd: 1.06 cm 0.6 - 1.1 cm LVIDs: 3.52 cm 1.5 - 3.6 cm %FS: 36.80 cm >25 % LA volume: Updated by Cherise Hsu on 05/17/2016 8:58:32 AM electronically signed on 05/17/2016 8:59:13 AM with status of Final Wall Motion Kim: 1=Normal, 2=Hypokinesis, 3=Akinesis, 4=Dyskinesis, 5=Aneurysmal, 6=Hyperkinetic, X=Not Visualized (Blank)=Missing
[2016-05-17 09:06] LABS: Basophils % 0.5 %; Eosinophils # 0.2 K/mcL (0.0-0.6); Eosinophils % 2.3 %; Hematocrit 38.4 % (37.5-50.1); Hemoglobin 13.4 g/dL (12.9-16.9); Immature Granulocytes % 0.1 % (0-4); Lymphocytes # 2.4 K/mcL (0.6-4.6); Lymphocytes % 31.5 %; Mean Corpuscular HGB Conc 34.9 g/dL (31.6-35.5); Mean Corpuscular Hemoglobin 30.4 pg (28.0-33.3); Mean Corpuscular Volume 87.1 fL (83.0-100.0); Mean Platelet Volume 8.8 fL (9.4-12.4); Monocytes # 0.8 K/mcL (0.0-1.3); Monocytes % 10.1 %; Neutrophils # 4.1 K/mcL (1.6-8.9); Platelet Count 211 K/mcL (140-400); Red Blood Count 4.41 M/mcL (4.19-5.50); Red Cell Distribution Width 12.7 % (11.5-14.5); Segmented Neutrophils % 55.5 %
[2016-05-17 09:18] LABS: BUN/Creatinine Ratio 16 (6-26); Blood Urea Nitrogen 17 mg/dL (8-26); Calcium 9.3 mg/dL (8.6-10.8); Carbon Dioxide 22 mEq/L (19-29); Chloride 104 mEq/L (98-109); Glucose 95 mg/dL (70-99); Magnesium 1.9 mg/dL (1.6-2.6); Osmolality,Calculated 287 (280-300); Phosphorous 2.5 mg/dL (2.3-4.7); Sodium 138 mEq/L (136-145); eGFR For African Americans > 60 (> 60); eGFR For Non-African Americans > 60 (> 60)
[2016-05-17 11:42] VITALS: BP 138/87
--- NOTE | 2016-05-17 13:07 | Discharge Summary ---
Date of Encounter: 05/17/16 Time of Encounter: 13:04 - Discharge Diagnosis (1) NSTEMI (non-ST elevated myocardial infarction) Priority: Primary Status: Acute (2) Chest pain Priority: Primary Status: Resolved Qualifiers: Chest pain type: unspecified Qualified Code(s): R07.9 - Chest pain, unspecified (3) HTN (hypertension) Priority: Secondary Status: Chronic Qualifiers: Hypertension type: essential hypertension Qualified Code(s): I10 - Essential (primary) hypertension (4) Tobacco abuse Priority: Secondary Status: Chronic (5) DVT prophylaxis Priority: Secondary Status: Acute (6) Morbid obesity Priority: Secondary Status: Chronic Qualifiers: Obesity type: unspecified obesity type Qualified Code(s): E66.01 - Morbid ( severe) obesity due to excess calories - Discharge Medications Prescriptions: Lisinopril [Zestril] 20 mg PO DAILY #30 tablet Home Medications: Aspirin Enteric Coated [Aspirin EC] 81 mg PO QAM 09/09/15 [History] Atorvastatin Calcium [Lipitor] 80 mg PO HS 09/09/15 [History] Clopidogrel [Plavix] 75 mg PO QAM 09/09/15 [History] Metoprolol [Lopressor] 100 mg PO BID 09/09/15 [History] Nitroglycerin [Nitrostat] 0.4 mg SL AD PRN 09/09/15 [History] Ranitidine HCl [Heartburn Relief] 150 mg PO BID 09/09/15 [History] Febuxostat [Uloric] 40 mg PO DAILY 05/16/16 [History] Hydrochlorothiazide 25 mg PO DAILY 05/16/16 [History] NIFEdipine [Nifedipine ER] 30 mg PO DAILY 05/16/16 [History] Omeprazole [PriLOSEC] 20 mg PO DAILY 05/16/16 [History] Lisinopril [Zestril] 20 mg PO DAILY #30 tablet 05/17/16 [Rx] Allergies/Adverse Reactions: Allergies No Known Allergies Allergy (Verified 09/09/15 13:51) Procedures/tests Complete & Pending: Procedures Performed prior 72 hours Category Date Time Status CL Cardiac Catheterization [CL] Routine Nurse Transition 05/16/16 08:49 Completed ECG 12 lead ECG [ECG] Routine Y 05/16/16 16:06 Completed EV limited echocardiogram Routine Y 05/16/16 10:29 Completed Date of admission: 05/16/16 08:46 Primary care physician: Jose Alfredo Waggoner DO Consults: 05/16/16 08:50 Consult to Cardiac Rehabilitation-Phase1 [CONS] Routine Comment: Reason for Consult: NSTEMI Call Completed: No Discharging clinician: Paola Field Anticipated date of discharge: 05/17/16 - Patient Status Disposition: Home, Self-Care Condition: Good Functional capacity at discharge: independent ambulation Overall status at discharge: patient is back to baseline - Discharge Instructions Instructions: Angina (GEN), Right Heart Catheterization (DC), Heart Healthy Diet (DC) Follow Up With: Khoa Jose MD [Partnered Physician] - 05/22/16 1:45 pm Jose Alfredo Waggoner DO [Primary Care Provider] - Additional Instructions: Please 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 Please continue ASA, Plavix, Lipitor, and Metoprolol. Your home dose of Lisinopril has been decreased to 20mg once a day. Please resume all your home medications as prescribed by your primary care physician. Smoking cessation is advised. Please seek medical help if chest pain recurs. - Diet and Activity Activity: resume usual activities as tolerated Diet: low fat, low cholesterol, low salt diet Hospital course: Mr. Sifuentes is a 40 year old male with PMH of CAD s/p stent placement in 2010, HLD , HTN, STERLING, tobacco abuse who was admitted for management of chest pain. He was found to have elevated TNI and was started on medical therapy for NSTEMI. He was seen by cardiology and underwent LHC. Pt is s/p successful PTCA with SAYRA to proximal circumflex and mLAD. He tolerated the procedure well and is currently asymptomatic. He is to continue ASA, Plavix, BB, Statin. Smoking cessation is advised. Patient is hemodynamically stable and will be discharged to home with follow up with PCP and cardiology. Patient demonstrates understanding of his diagnosis and agrees with the discharge care plan. - Time Spent with Patient Total time spent providing and/or coordinating discharge services: Less than 30 minutes - Constitutional Vitals: Temp Pulse Resp BP Pulse Ox 97.5 F L 78 16 138/87 94 05/17/16 11:40 05/17/16 11:40 05/17/16 11:40 05/17/16 11:40 05/17/16 11:40 General appearance: Present: A&O X 3, morbidly obese, no acute distress, answers questions appropriately - Head Head exam: Present: atraumatic, normocephalic - Eye Eye exam: Present: conjuntiva pink, sclera anicteric - Respiratory Respiratory exam: Present: CTAB. Absent: accessory muscle use, rales, rhonchi, wheezes - Cardiovascular Cardiovascular exam: Present: RRR, +S1, +S2. Absent: diastolic murmur, gallop, rubs, systolic murmur - GI/Abdominal GI/Abdominal exam: Present: normal bowel sounds, soft, no peritoneal signs. Absent: distended, tenderness - Extremities Exam Extremities exam: Present: warm, radial pulses palpable and symetrical. Absent : calf tenderness, cyanotic, pedal edema - Neurological Exam Neurological exam: Present: alert, oriented X3 - Psychiatric Psychiatric exam: Present: normal affect, normal mood
--- NOTE | 2016-05-17 13:26 | Electrocardiograph Report ---
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
== END 2016-05-17 13:56 | disposition home or self-care (01) | DRG 174 ==
LOC: 3BNU 23:21 → EMEROO 23:21 → 3BNU 05-16 02:57
PROVIDERS: ADMIT Internal Medicine; ATTEND Nurse Practitioner Family

== ENCOUNTER 2019-01-18 17:50 | Observation (INO) ==
[2019-01-18 18:18] LABS: Basophils # 0.1 K/mcL (0.0-0.2); Basophils % 0.7 %; Eosinophils # 0.2 K/mcL (0.0-0.6); Eosinophils % 3.1 %; Hematocrit 42.1 % (37.5-50.1); Hemoglobin 14.4 g/dL (12.9-16.9); Immature Granulocytes % 0.1 % (0-4); Lymphocytes # 2.1 K/mcL (0.6-4.6); Lymphocytes % 30.6 %; Mean Corpuscular HGB Conc 34.2 g/dL (31.6-35.5); Mean Corpuscular Volume 90.7 fL (83.0-100.0); Mean Platelet Volume 8.7 fL (9.4-12.4); Monocytes # 0.8 K/mcL (0.0-1.3); Monocytes % 11.4 %; Neutrophils # 3.7 K/mcL (1.6-8.9); Platelet Count 246 K/mcL (140-400); Red Blood Count 4.64 M/mcL (4.19-5.50); Red Cell Distribution Width 13.1 % (11.5-14.5); Segmented Neutrophils % 54.1 %; White Blood Count 6.8 K/mcL (4.3-11.1)
[2019-01-18 18:40] LABS: BUN/Creatinine Ratio 14 (6-26); Blood Urea Nitrogen 14 mg/dL (6-20); Calcium 9.5 mg/dL (8.6-10.3); Carbon Dioxide 27 mEq/L (23-29); Chloride 100 mEq/L (98-107); Glucose 146 mg/dL (70-105); Osmolality,Calculated 287 (280-300); Potassium 3.9 mEq/L (3.5-5.1); Sodium 137 mEq/L (136-145); Troponin I < 0.03 ng/mL (< 0.04); eGFR For African Americans > 60 (> 60); eGFR For Non-African Americans > 60 (> 60)
[2019-01-18] MEDS ORDERED: Nitroglycerin 0.4 MG TAB.SUBL SL PRN (19:23)
[2019-01-18] MEDS ORDERED: Aspirin 81 MG TAB.CHEW PO ONE (19:23)
[2019-01-18] MEDS ORDERED: *HR* Dextrose 50 % in Water (Syg) 50 ML SYRINGE IVP PRN (19:42)
[2019-01-18] MEDS ORDERED: Dextrose Gel 15 GM/37.5 ML TUBE PO PRN ×2 (19:42)
[2019-01-18] MEDS ORDERED: D5% in Water 1,000 ML IVC PRN (19:42)
[2019-01-18] MEDS: Insulin LISPRO 300 UNITS/3 ML VIAL SQ SCH (20:48)
[2019-01-18] MEDS: Metoprolol 100 MG TABLET PO SCH (20:55)
[2019-01-18 23:19] LABS: Estimated Average Glucose 189 mg/dl
[2019-01-19 00:25] LABS: Basophils % 0.6 %; Eosinophils # 0.2 K/mcL (0.0-0.6); Eosinophils % 2.7 %; Hematocrit 39.8 % (37.5-50.1); Hemoglobin 13.9 g/dL (12.9-16.9); Immature Granulocytes % 0.2 % (0-4); Lymphocytes # 2.3 K/mcL (0.6-4.6); Lymphocytes % 36.6 %; Mean Corpuscular HGB Conc 34.9 g/dL (31.6-35.5); Mean Corpuscular Hemoglobin 31.6 pg (28.0-33.3); Mean Corpuscular Volume 90.5 fL (83.0-100.0); Mean Platelet Volume 8.9 fL (9.4-12.4); Monocytes # 0.4 K/mcL (0.0-1.3); Monocytes % 5.8 %; Neutrophils # 3.4 K/mcL (1.6-8.9); Platelet Count 226 K/mcL (140-400); Red Cell Distribution Width 12.8 % (11.5-14.5); Segmented Neutrophils % 54.1 %; White Blood Count 6.2 K/mcL (4.3-11.1)
[2019-01-19 00:31] LABS: Prothrombin Time 11.9 Seconds (9.4-12.1)
[2019-01-19 00:34] LABS: Activated Partial Thrombo Time 34.6 Seconds (26.0-36.0)
[2019-01-19 00:45] LABS: BUN/Creatinine Ratio 14 (6-26); Blood Urea Nitrogen 15 mg/dL (6-20); Calcium 9.1 mg/dL (8.6-10.3); Carbon Dioxide 29 mEq/L (23-29); Chloride 100 mEq/L (98-107); Chol/HDL Ratio 3.2 (0-4.9); Cholesterol 106 mg/dL (< 200); Glucose 171 mg/dL (70-105); HDL Cholesterol 33 mg/dL (40-59); LDL Cholesterol,Calculated 41 mg/dL (0-99); Osmolality,Calculated 287 (280-300); Potassium 3.5 mEq/L (3.5-5.1); Sodium 136 mEq/L (136-145); Triglycerides 160 mg/dL (< 150); eGFR For African Americans > 60 (> 60); eGFR For Non-African Americans > 60 (> 60)
[2019-01-19] MEDS: Insulin LISPRO 300 UNITS/3 ML VIAL SQ SCH ×3 (07:55→17:28)
[2019-01-19] MEDS: Aspirin Enteric Coated 81 MG Tablet PO SCH (09:41)
[2019-01-19] MEDS: NIFEdipine XL (24 HR) 30 MG TAB.ER.24 PO SCH (09:41)
[2019-01-19] MEDS: Lisinopril 20 MG TABLET PO SCH (09:41)
[2019-01-19] MEDS: Metoprolol 100 MG TABLET PO SCH ×2 (09:41→20:43)
[2019-01-19] MEDS ORDERED: Regadenoson 0.4 MG/5 ML SYRINGE IVP ONE (11:40)
[2019-01-19] MEDS: *HR* Heparin 5,000 UNIT/ML VIAL SQ SCH (17:30)
[2019-01-19] MEDS ORDERED: Perflutren Lipid Microsphere 1.3 ML in 0.9 % Sodium Chloride 8.7 ML IVP ONE (19:12)
[2019-01-19] MEDS ORDERED: Perflutren Lipid Microsphere 2 ML VIAL ONE (19:15)
[2019-01-20] MEDS: *HR* Heparin 5,000 UNIT/ML VIAL SQ SCH (05:26)
[2019-01-20] MEDS: Metoprolol 100 MG TABLET PO SCH (08:42)
[2019-01-20] MEDS: Aspirin Enteric Coated 81 MG Tablet PO SCH (08:42)
[2019-01-20] MEDS: NIFEdipine XL (24 HR) 30 MG TAB.ER.24 PO SCH (08:43)
[2019-01-20] MEDS: Lisinopril 20 MG TABLET PO SCH (08:43)
[2019-01-20] MEDS: Insulin LISPRO 300 UNITS/3 ML VIAL SQ SCH ×2 (08:44→11:38)
[2019-01-20 11:32] VITALS: BP 129/80
== END 2019-01-20 14:20 | disposition home or self-care (01) ==
LOC: 3BNU 17:50 → EMEROOARM 17:50 → 3BNU 20:08
PROVIDERS: ADMIT Internal Medicine; ATTEND Internal Medicine

== ENCOUNTER 2020-07-12 12:49 | Observation (INO) ==
[2020-07-12] MEDS ORDERED: Aspirin 81 MG TAB.CHEW PO ONE (13:22)
[2020-07-12 13:54] LABS: Basophils # 0.1 K/mcL (0.0-0.2); Basophils % 0.7 %; Eosinophils # 0.3 K/mcL (0.0-0.6); Hematocrit 37.9 % (37.5-50.1); Hemoglobin 12.7 g/dL (12.9-16.9); Immature Granulocytes % 0.4 % (0-4); Lymphocytes % 24.4 %; Mean Corpuscular HGB Conc 33.5 g/dL (31.6-35.5); Mean Corpuscular Hemoglobin 29.5 pg (28.0-33.3); Mean Corpuscular Volume 87.9 fL (83.0-100.0); Mean Platelet Volume 9.1 fL (9.4-12.4); Monocytes # 0.9 K/mcL (0.0-1.3); Monocytes % 10.3 %; Neutrophils # 5.1 K/mcL (1.6-8.9); Platelet Count 267 K/mcL (140-400); Red Blood Count 4.31 M/mcL (4.19-5.50); Segmented Neutrophils % 61.2 %; White Blood Count 8.3 K/mcL (4.3-11.1)
[2020-07-12] MEDS ORDERED: Nitroglycerin 0.4 MG TAB.SUBL SL PRN (13:54)
[2020-07-12 14:17] LABS: BUN/Creatinine Ratio 16 (6-26); Blood Urea Nitrogen 19 mg/dL (6-20); Calcium 9.3 mg/dL (8.6-10.3); Carbon Dioxide 24 mEq/L (23-29); Chloride 102 mEq/L (98-107); Glucose 201 mg/dL (70-105); Osmolality,Calculated 294 (280-300); Potassium 3.6 mEq/L (3.5-5.1); Sodium 138 mEq/L (136-145); eGFR For African Americans > 60 (> 60); eGFR For Non-African Americans > 60 (> 60)
[2020-07-12 14:18] LABS: Troponin I < 0.03 ng/mL (< 0.04)
[2020-07-12] MEDS ORDERED: Dextrose Gel 15 GM/37.5 ML TUBE PO PRN ×2 (15:49)
[2020-07-12] MEDS ORDERED: Ondansetron 4 MG/2 ML VIAL IVP PRN (15:49)
[2020-07-12] MEDS ORDERED: Acetaminophen 325 MG TABLET PO PRN (15:49)
[2020-07-12] MEDS ORDERED: Naloxone 0.4 MG/ML INJ IVP PRN (15:49)
[2020-07-12] MEDS ORDERED: D5% in Water 1,000 ML IVC PRN (15:49)
[2020-07-12] MEDS ORDERED: *HR* Dextrose 50 % in Water (Vial) 50 ML VIAL IVP PRN (15:49)
[2020-07-12] MEDS: Insulin LISPRO 300 UNITS/3 ML VIAL SUBQ SCH (18:31)
[2020-07-12] MEDS: Metoprolol 100 MG TABLET PO SCH (21:02)
[2020-07-13 05:33] LABS: BUN/Creatinine Ratio 15 (6-26); Blood Urea Nitrogen 17 mg/dL (6-20); Calcium 9.1 mg/dL (8.6-10.3); Carbon Dioxide 25 mEq/L (23-29); Chloride 103 mEq/L (98-107); Glucose 108 mg/dL (70-105); Osmolality,Calculated 292 (280-300); Potassium 3.5 mEq/L (3.5-5.1); Sodium 140 mEq/L (136-145); eGFR For African Americans > 60 (> 60); eGFR For Non-African Americans > 60 (> 60)
[2020-07-13] MEDS ORDERED: *HR* Enoxaparin 40 MG/0.4 ML SYRINGE SQ SCH (06:00)
[2020-07-13] MEDS ORDERED: Regadenoson 0.4 MG/5 ML SYRINGE IVP ONE (07:43)
[2020-07-13] MEDS ORDERED: FEBUXOSTAT 40 MG PO SCH (09:00)
[2020-07-13] MEDS ORDERED: NIFEdipine XL (24 HR) 30 MG TAB.ER.24 PO SCH (09:00)
[2020-07-13] MEDS ORDERED: Aspirin Enteric Coated 81 MG Tablet PO SCH (09:00)
[2020-07-13] MEDS ORDERED: lisinopriL 20 MG TABLET PO SCH (09:00)
[2020-07-13] MEDS: Insulin LISPRO 300 UNITS/3 ML VIAL SUBQ SCH ×2 (09:16→11:54)
[2020-07-13] MEDS: Metoprolol 100 MG TABLET PO SCH (09:16)
[2020-07-13 10:27] VITALS: BP 137/86
[2020-07-13] MEDS ORDERED: Gabapentin 300 MG CAPSULE PO PRN (12:24)
[2020-07-14] MEDS ORDERED: Furosemide 40 MG TABLET PO SCH (09:00)
== END 2020-07-13 13:37 | disposition home or self-care (01) ==
LOC: EMEROOARM 12:49 → 3BNU 12:49 → SUATTDRO 17:04 → 3BNU 17:35
PROVIDERS: ADMIT Internal Medicine; ATTEND Nurse Practitioner